=== PATIENT | female | born 1995 | race Caucasian/White ===

== ENCOUNTER 2016-12-01 11:53 | Emergency (ER) | payer OTHER ==
[2016-12-01] MEDS ORDERED: SODIUM CHLORIDE 0.9% 1,000 ML IV STA (12:37)
[2016-12-01] MEDS ORDERED: ONDANSETRON 4 MG/2 ML VIAL IVP STA (12:37)
[2016-12-01] MEDS ORDERED: HYDROmorphone 1 MG/ML 1 ML SYRINGE IVP STA (12:37)
[2016-12-01] MEDS ORDERED: RX INFO: IV CONTRAST WAS GIVEN 1 EACH MISC MISCELLANE PRN (12:37)
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
[2016-12-01 13:25] LABS: Basophils % (A) 0 %; CHCM 33.5; Eosinophils # (A) 0.1 k/uL (0-0.7); Eosinophils % (A) 1 %; HCT 43.7 % (34.0-46.0); HDW 2.23; HGB 14.2 gm/dL (11.4-16.0); Luc # (Auto) 0.19; Luc % (Auto) 2; Lymphocytes # (A) 2.6 k/uL (1.0-4.8); Lymphocytes % (A) 25 %; MCH 29.3 pg (25.0-35.0); MCHC 32.5 g/dL (31.0-37.0); Mean Platelet Volume 6.3; Monocytes # (A) 0.6 k/uL (0-1.0); Monocytes % (A) 6 %; Neutrophils # (A) 7.1 k/uL (1.3-7.7); Neutrophils % (A) 67 %; RBC 4.85 m/uL (3.80-5.40); RDW 12.8 % (11.5-15.5); WBC 10.6 k/uL (3.8-10.6); WBC (Perox) 10.86
[2016-12-01 13:33] LABS: INR 1.1 (<1.1); Prothrombin Time 10.7 sec (9.0-12.0)
[2016-12-01 13:47] LABS: Creatine Kinase 392 U/L (30-135)
[2016-12-01 13:52] LABS: Partial Thromboplastin Time 21.7 sec (22.0-30.0)
[2016-12-01 14:01] LABS: Troponin I <0.012 ng/mL (0.000-0.034)
[2016-12-01 14:09] LABS: Creatine Kinase MB 3.8 ng/mL (0.0-2.4)
[2016-12-01 14:11] VITALS: RESP 18
[2016-12-01] MEDS ORDERED: SODIUM CHLORIDE 0.9% 2,000 ML IV ONE (14:11)
[2016-12-01 14:14] LABS: Appearance,Urine Clear (Clear); Bilirubin,Urine Negative (Negative); Glucose,Urine (UA) Negative (Negative); Ketones,Urine Negative (Negative); Leukocyte Esterase,Urine Negative (Negative); Nitrite,Urine Negative (Negative); PH, Urine 6.5 (5.0-8.0); Protein,Urine Negative (Negative); Specific Gravity,Urine 1.007 (1.001-1.035); UA Billing (MACRO vs. MICRO) CHEM; Urobilinogen,Urine <2.0 mg/dL (<2.0)
[2016-12-01] MEDS ORDERED: SODIUM CHLORIDE 0.9% 1,000 ML IV SCH (14:15)
[2016-12-01 14:20] LABS: ALT 45 U/L (9-52); AST 45 U/L (14-36); Alcohol <10 mg/dL; Alkaline Phosphatase 72 U/L (38-126); Anion Gap 10 mmol/L; Blood Urea Nitrogen 8 mg/dL (7-17); Calcium 9.5 mg/dL (8.4-10.2); Carbon Dioxide 26 mmol/L (22-30); Chloride 103 mmol/L (98-107); Glucose 94 mg/dL (74-99); Non-African American GFR(MDRD) >60 (>60 ml/min/1.73 sqM); Sodium 139 mmol/L (137-145); Total Bilirubin 0.8 mg/dL (0.2-1.3); Total Protein 7.4 g/dL (6.3-8.2)
[2016-12-01 14:49] LABS: Potassium 4.7 mmol/L (3.5-5.1)
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
[2016-12-01 16:33] VITALS: BP 123/71; PULSE 80; TEMP 97.9
== END 2016-12-01 16:34 | disposition home or self-care (01) ==
LOC: EC 11:53
DX: S10.91XA Abrasion of unspecified part of neck, initial encounter (principal); S09.90XA Unspecified injury of head, initial encounter; M54.5 Low back pain; M54.6 Pain in thoracic spine; R10.12 Left upper quadrant pain; R07.9 Chest pain, unspecified; Z79.899 Other long term (current) drug therapy; V48.5XXA Car driver injured in noncollision transport accident in traffic accident, initial encounter; W22.11XA Striking against or struck by driver side automobile airbag, initial encounter; Y92.410 Unspecified street and highway as the place of occurrence of the external cause
CPT/HCPCS: 36415; 93005; 86900; 86901; 80053; 82550; 82553; 84484; 85025; 85610; 85730; 86850; 81003; 81025; 80306; 80320; 71010; 72170; 72125; 70450; 71260; 74177; 99284; 96374; 96375; 96361 ×4; J2405; J1170; Q9967

== ENCOUNTER → 2017-01-17 | Outpatient (CLI) | payer OTHER, BC ==
--- NOTE | 2017-01-18 08:07 | XR ---
EXAMINATION TYPE: XR tibia fibula RT DATE OF EXAM: 01/17/2017 COMPARISON: NONE HISTORY: Pain TECHNIQUE: Two views are submitted. FINDINGS: The osseous structures are intact. The joint spaces are preserved. IMPRESSION: 1. No acute osseous abnormality.
== END | disposition home or self-care (01) ==
LOC: RADXRYALE 10:13
PROVIDERS: ATTEND Internal Medicine
DX: M79.604 Pain in right leg (principal)